=== PATIENT | female | born 1945 | race Caucasian/White ===

== ENCOUNTER 2017-08-24 08:25 | Day surgery (SDC) | payer MEDICARE, BC ==
[~2017-08-24 08:25] MED LIST: EPINEPHRINE INJ 1 MG/10 ML DISP.SYRIN ONE; FENTANYL CITRATE INJ/PF 100 MCG/2 ML AMPUL ONE; FLUMAZENIL INJ 0.5 MG/5 ML VIAL ONE; GLUCAGON,HUMAN RECOMB 1 MG INJ ONE; GLYCOPYRROLATE INJ 0.4 MG/2 ML VIAL ONE; NALOXONE HCL INJ/PF 0.4 MG/1 ML SDV ONE; ONDANSETRON HCL INJ/PF 4 MG/2 ML SDV ONE
[2017-08-24 09:48] LABS: HEMATOCRIT 38.5 % (36.0-47.0); HGB HCT DIFFERENCE 0.5; MEAN CORPUSCULAR HEMOGLOBIN 30.5 pg (27.0-33.4); MEAN CORPUSCULAR HGB CONC 33.9 g/dL (32.0-36.0); MEAN CORPUSCULAR VOLUME 90 fl (80-97); RED BLOOD COUNT 4.28 10^6/uL (3.72-5.28); RED CELL DISTRIBUTION WIDTH 13.4 % (11.5-14.0); WHITE BLOOD COUNT 4.9 10^3/uL (4.0-10.5)
[2017-08-24 10:07] LABS: ALANINE AMINOTRANSFERASE 33 U/L (9-52); ALBUMIN 4.4 g/dL (3.5-5.0); ALKALINE PHOSPHATASE 60 U/L (38-126); ANION GAP 10 (5-19); ASPARTATE AMINO TRANSFERASE 27 U/L (14-36); BILIRUBIN,DIRECT 0.4 mg/dL (0.0-0.4); BILIRUBIN,TOTAL 1.8 mg/dL (0.2-1.3); BLOOD UREA NITROGEN 20 mg/dL (7-20); CALCIUM 9.8 mg/dL (8.4-10.2); CARBON DIOXIDE 28 mmol/L (22-30); CHLORIDE 106 mmol/L (98-107); CREATININE RESULT 1.03 mg/dL (0.52-1.25); GLUCOSE 112 mg/dL (75-110); LIPASE 43.6 U/L (23-300); POTASSIUM 4.5 mmol/L (3.6-5.0); SODIUM 143.7 mmol/L (137-145); TOTAL PROTEIN 7.4 g/dL (6.3-8.2)
[2017-08-24] MEDS: MIDAZOLAM 2 MG/2 ML INJ ONE ×2 (10:13→10:30)
--- NOTE | 2017-08-24 10:55 | Operative Report ---
Operative Report DATE OF SURGERY: 08/24/17 PREOPERATIVE DIAGNOSIS: Abdominal pain. POSTOPERATIVE DIAGNOSIS: Gastroesophageal junction polyp. Diverticulosis of the colon. OPERATION: Esophagogastroduodenoscopy with biopsy of esophagogastric junction polyp. Colonoscopy. SURGEON: SERENE PALMER ANESTHESIA: Moderate Sedation TISSUE REMOVED OR ALTERED: Gastroesophageal junction polyp. GE junction. COMPLICATIONS: None ESTIMATED BLOOD LOSS: Minimal INTRAOPERATIVE FINDINGS: At the gastroesophageal junction slight mucosal irregularity. Half centimeter sessile polyp at the GE junction. Sigmoid diverticulosis. PROCEDURE: Informed consent was obtained. Patient was brought to the endoscopy suite. IV sedation with Versed and fentanyl was administered. Endoscope was passed via the patient's mouth it was felt that the second portion of the duodenum. Duodenum appeared to be normal. Gastric mucosa appeared to be normal. At the GE junction there was 1/2 cm sessile polyp which was biopsied. At the GE junction there was some slight mucosal irregularity which was biopsied as well. Remainder of the esophagus appeared normal. Digital rectal exam revealed no palpable perianal masses. And the scope was passed via the patient's anus it was fed to the cecum. The bowel prep was good visualization was good. The cecum, right colon, transverse colon and the descending colon appeared normal. With no polyps. Sigmoid colon had multiple large diverticuli but otherwise appeared normal. Rectum appear normal. Patient tolerated procedure well with no apparent complications and was taken to the recovery area in stable condition. Gastroesophageal junction polyp. Will await biopsy results. Of note her laboratory testing was noteworthy for an elevated total bilirubin of 1.8. However her direct bilirubin was normal at 0.4. Remainder of her liver function studies were normal however. In light of her right upper quadrant abdominal pain after cholecystectomy in the remote past, I will refer her to gastroenterology for possible ERCP. I will follow up with the patient.
--- NOTE | 2017-08-24 10:58 | PDOC DISCHARGE SUMMARY ---
Discharge Summary (SDC) - Discharge Final Diagnosis: Abdominal pain, sigmoid diverticulosis, gastroesophageal junction polyp. Hyperbilirubinemia Date of Surgery: 08/24/17 Discharge Date: 08/24/17 Condition: Good Treatment or Instructions: Underwent esophagogastroduodenoscopy with gastroesophageal junction polyp biopsy. Underwent colonoscopy. March discharge patient home. Follow-up with me in 2 weeks. Referrals: ERNST BRANCH MD [Primary Care Provider] - Discharge Diet: As Tolerated Discharge Activity: Activity As Tolerated Report the Following to Your Physician Immediately: Fever over 101 Degrees, Unusual Bleeding
[2017-08-24 12:02] VITALS: BP 134/70
== END 2017-08-24 11:45 | disposition home or self-care (01) ==
LOC: END 08:25
PROVIDERS: ATTEND Surgery
PROC: 0DB68ZX Excision of Stomach, Via Natural or Artificial Opening Endoscopic, Diagnostic (ICD-10-PCS; 2017-08-24)
PROC: 0DJD8ZZ Inspection of Lower Intestinal Tract, Via Natural or Artificial Opening Endoscopic (ICD-10-PCS; principal; 2017-08-24 10:00)
PROC: 0DB48ZX Excision of Esophagogastric Junction, Via Natural or Artificial Opening Endoscopic, Diagnostic (ICD-10-PCS; 2017-08-24 10:00)
DX: Z12.11 Encounter for screening for malignant neoplasm of colon (principal); K57.30 Diverticulosis of large intestine without perforation or abscess without bleeding; K31.7 Polyp of stomach and duodenum; E80.6 Other disorders of bilirubin metabolism; E78.2 Mixed hyperlipidemia; R73.03 Prediabetes; E78.1 Pure hyperglyceridemia; Z88.3 Allergy status to other anti-infective agents; Z79.51 Long term (current) use of inhaled steroids; Z79.899 Other long term (current) drug therapy
CPT/HCPCS: 43239; 36415; 83690; 85027; 80053; 88305 ×2; G0121; J2250; J3010; 45378; J0171; J1610; J2310; J2405; J3490